=== PATIENT | female | born 1990 | race Two or more races ===

== ENCOUNTER 2017-09-04 22:29 | Emergency (ER) | payer OTHER ==
[~2017-09-04] VITALS: Ht 160 cm; Wt 56.7 kg
[2017-09-05] MEDS ORDERED: MEDROLPACK PO (02:52)
[2017-09-05] MEDS ORDERED: ZITHROMAX TRI-500 MG PO (02:52)
[2017-09-05] MEDS ORDERED: TESSALON PERLE100 MG PO (02:52)
[2017-09-05] MEDS ORDERED: FLONASE ALLERG9.9 ML NASAL (02:52)
== END 2017-09-05 03:20 | disposition home or self-care (01) ==
LOC: ER 22:29
DX: J06.9 Acute upper respiratory infection, unspecified (principal); J32.8 Other chronic sinusitis